=== PATIENT | female | born 1995 | race Caucasian/White ===

== ENCOUNTER 2024-05-16 14:11 | Emergency (ER) | payer MEDICAID, SELFPAY ==
[2024-05-16 15:03] LABS: #Basophils 0.07 10x3/uL (0.0-0.2); #Eosinophils 0.21 10x3/uL (0.0-0.5); #Monocytes 0.99 10x3/uL (0.0-1.1); #Neutrophils 9.94 10x3/uL (1.5-8.4); %Basophils 0.5 % (0.0-2.0); %Eosinophils 1.6 % (0.0-6.0); %Lymphocytes 16.5 % (18.0-47.0); %Monocytes 7.3 % (0.0-10.0); %Neutrophils 73.7 % (40.0-75.0); Hematocrit 35.5 % (34.9-44.5); Hemoglobin 11.8 g/dL (12.0-15.5); Mean Corpuscular HGB CONC 33.2 g/dL (32.0-36.0); Mean Corpuscular Hemoglobin 28.8 pg (27.0-33.0); Mean Corpuscular Volume 86.6 fL (81.6-98.3); Mean Platelet Volume 11.3 fL (7.4-10.4); Platelet Count 229 10x3/uL (150-450); RBC Distribution Width 12.8 % (11.5-14.5); White Blood Cell (WBC) Count 13.5 10x3/uL (3.5-10.5)
[2024-05-16 15:27] LABS: Bilirubin Neg (Negative); Blood, Urine Negative (Negative); Clarity Clear (Clear); Glucose, Urine (Dipstick) Normal (Negative); Ketone, Urine Negative (Negative); Leukocyte 25 (Negative); Nitrite Negative (Negative); Protein, Urine (Dipstick) Negative (Neg-Trace); Urobilinogen Normal mg/dL (Less than 2)
[2024-05-16 16:38] LABS: Bacteria/HPF None Seen HPF (None Seen); CAUTI Indications for Culture Pelvic or flank pain; RBC/HPF 0-3 HPF (0-3); Squamous Epithelial 0-3 HPF (0-3); WBC/HPF 0-3 HPF (0-3)
[2024-05-16 16:40] LABS: Urine Culture Reflex No No
== END 2024-05-16 15:43 | disposition home or self-care (01) ==
LOC: CSHERS 14:11
DX: O20.0 Threatened abortion (principal); Z3A.01 Less than 8 weeks gestation of pregnancy
CPT/HCPCS: 36415; 76856; 81001; 84702; 85025; 86900; 86901

== ENCOUNTER 2024-05-18 17:37 | Emergency (ER) | payer SELFPAY | END 2024-05-18 19:35 | disposition home or self-care (01) | LOC: CSHERS 17:37 | DX: Z34.81 Encounter for supervision of other normal pregnancy, first trimester (principal); Z3A.08 8 weeks gestation of pregnancy | CPT/HCPCS: 36415; 84702; 99284 ==

== ENCOUNTER 2024-08-03 04:43 | Emergency (ER) | payer OTHER ==
[2024-08-03] MEDS ORDERED: Loratadine 10 MG TAB PO SCH (05:15)
== END 2024-08-03 05:54 | disposition home or self-care (01) ==
LOC: CSHERS 04:43
DX: J30.9 Allergic rhinitis, unspecified (principal)
CPT/HCPCS: 87081; 87428; 87430; 99283